=== PATIENT | female | born 2000 | race Caucasian/White ===

== ENCOUNTER 2022-02-21 14:53 | Outpatient (REF) | payer MEDICAID, SELFPAY ==
[2022-02-21 18:04] LABS: CT PCR NOT DETECTED (Not Detect.); NG PCR NOT DETECTED (Not Detect.)
[2022-02-22 12:29] LABS: BV Int Neg Control Negative (Negative); BV Int Pos Control Positive (Positive)
[2022-02-24 18:21] LABS: HPV mRNA E6/E7 rflx Not Detected (Not Detected)
== END 2022-02-21 14:54 | disposition home or self-care (01) ==
LOC: HO.LAB 14:53
PROVIDERS: Visit Provider Advanced Practice Midwife
DX: Z30.09 Encounter for other general counseling and advice on contraception (principal); Z20.2 Contact with and (suspected) exposure to infections with a predominantly sexual mode of transmission; Z97.5 Presence of (intrauterine) contraceptive device
CPT/HCPCS: 81025; 87480; 87491; 87510; 87591; 87624; 87660; 88142

== ENCOUNTER → 2022-04-19 09:59 | Outpatient (BNVA) | payer MEDICAID, SELFPAY | PROVIDERS: PCP Family Medicine; Referring Provider Family Medicine; Visit Provider Surgery | DX: Z97.5 Presence of (intrauterine) contraceptive device (principal) | CPT/HCPCS: 99202 ==

== ENCOUNTER 2022-04-25 09:14 | Day surgery (SDC) | payer MEDICAID, SELFPAY ==
[2022-04-25] VITALS (7 sets, daily range): BP systolic 110–121; BP diastolic 48–71; PULSE 59–88; RESP 16–18; TEMP 36.2–36.6; O2SAT 100; BMI 23.0
--- NOTE | ~2022-04-25 | FL_ITS ---
EXAMINATION: XR FLUOROSCOPY WITH IMAGES CLINICAL INFORMATION: Removal of implant from left upper extremity COMPARISON: None. TECHNIQUE: Fluoroscopy performed by Dr. Marcelina Pavon. Fluoroscopy time: 0.5 minutes. Cumulative Dose: 0.522 mGy. DAP: 0.42692 Gy-cm2. Images: 1. FINDINGS: Single view of portion of the left upper extremity performed with instruments overlying. FL/FL guidance in OR IMPRESSION: Intraoperative fluoroscopy for implant removal.
[2022-04-25 09:39] LABS: UPreg QC Valid YES; Urine Pregnancy NEGATIVE (NEGATIVE)
--- NOTE | 2022-04-25 09:45 | HO.ANESPROP2 ---
HPI - Anesthesia Eval Consult details Narrative: 21 yo female patient for removal of foreign body (Nexplanon) left upper arm PMFSH Active Problems Active Problems: All Active Problems (Updated 03/01/22 @ 12:53 by Qian Rader CNM) control counseling (Acute) Potential exposure to STD (Acute) Cervical cancer screening (Acute) Nexplanon in place (Acute) Family History Family history of problems with anesthesia: No Surgical History Surgical History [place] teeth extracted History of Problems with Anesthesia: No Social History Social History Patient Tobacco Use Status: Never used Tobacco Use of substances other than those prescribed or required for medical reasons: No Are you DNR?: No Advance Directives: No Advance Directives Information Provided: Yes Meds Allergies Allergy/AdvReac Type Severity Reaction Status Date / Time No Known Allergies Allergy Verified 04/19/22 10:05 Active Medications: Current Medications Lactated Ringer's (Lr) 1,000 mls @ 100 mls/hr IVCONT .Q10H DARREL Cefazolin Sodium/Dextrose (Ancef) 2 gm in 50 mls @ 100 mls/hr IV PREOP ONE Stop: 04/25/22 09:46 Exam Exam Date and Time: April 25, 2022 0945 Height,Weight and Vital Signs: Height 5 ft 3 in Weight 58.967 kg Last Vital Signs Temp 97.2 F 04/25/22 09:29 Pulse 61 04/25/22 09:29 Resp 16 04/25/22 09:29 BP 121/62 04/25/22 09:29 Pulse Ox 100 04/25/22 09:29 O2 Del Method 04/25/22 09:29 Pertinent Lab Results Pertinent Lab Results: Laboratory Tests 04/25/22 09:17 Urine Test NEGATIVE Airway Mallampati Class: I TM Dist: >3cm Neck ROM: Full Loose/Missing/Broken Teeth: No Heart: RRR Lungs: CTAB Assessment and Plan Assessment Anesthesia Assessment: Anesthesia Plan Discussed and Chart Reviewed Final Anesthetic Review Family History of Problems with Anesthesia: No History of Problems with Anesthesia: No NPO: Yes ASA Class: I Final Preanesthetic Review: No Changes in Pt Med Stat, Meds/Allgs Chart Reviewed, Consent Obtained/Reviewed and Anes Risks/Benef Reviewed Patient Risk: Low Procedure Risk: Low Assessment/Block/Sedation in SS: Assess/Block/Sedation-SS Anesthetic Plan Anesthetic Plan: GA Disposition: Standard PACU
--- NOTE | 2022-04-25 11:52 | W.PM.OPN ---
Operative Note Operative Note Date of Service: 04/25/22 Narrative: Preoperative diagnosis: Nexplanon left upper arm Postoperative diagnosis: same Procedure: removal of Nexplanon left upper arm fluoro Surgeon: Kali Raines MD [employer] Keeper: JORGE Carlos Anesthesia: general LMA Indications for procedure: 21-year-old female patient presenting with a Nexplanon placed in the left upper arm approximately 3 years ago. Patient is unable to feel the Nexplanon and on examination Nexplanon is not palpable. She presents now for removal under fluoroscopy. Operative findings: Nexplanon in left upper arm Specimen: Nexplanon Estimated blood loss: less than 1 mL Complications: none Procedure details: patient was brought to the OR placed in a supine position. After administering general anesthesia patient's left arm was prepped with ChloraPrep and draped in a sterile fashion. A surgical time-out was called the consent confirmed. Patient received preoperative antibiotics and Venodyne boots were in place. local anesthesia consisting of 0.5% Sensorcaine was infiltrated in the left arm at the midportion of the Nexplanon as identified by fluoroscopy. A transverse incision was then made with a scalpel carried out through subcutaneous tissue. Using the fluoroscopy as a guide the Nexplanon was identified And grasped with a hemostat. This was then pulled up through the incision and removed. After assuring adequate hemostasis the skin was closed using interrupted 4-0 Polysorb sutures in a subcuticular fashion. Dermabond was then applied. The patient tolerated the procedure well. Sponge, instrument, and needle counts reported as correct. The patient was transferred to PACU in stable condition.
== END 2022-04-25 14:15 | disposition home or self-care (01) ==
PROVIDERS: Anesthesiology; Visit Provider Surgery
PROC: (CPT 11982; principal; 2022-04-25 11:20)
DX: Z30.46 Encounter for surveillance of implantable subdermal contraceptive (principal)
CPT/HCPCS: 11982; 81025; 88300; J0690; J1100; J2250; J2405; J2795; J3010

== ENCOUNTER 2024-02-23 11:37 | Outpatient (REF) | payer MEDICAID, SELFPAY ==
[2024-02-23 13:10] LABS: MANUAL DIFF FLAG NO
[2024-02-23 13:14] LABS: Basophils Percent Auto 0.6 % (0-2); Eosinophils Absolute Auto 0.1 X10*3/uL (0.0-0.4); Eosinophils Percent Auto 2.1 % (0-4); Hematocrit 40.6 % (37.0-47.0); Hemoglobin 13.2 g/dl (12.0-16.0); Imm Gran Abs Auto 0.01 X10*3/uL (0.00-0.03); Imm Gran Pct Auto 0.2 % (0.0-0.4); Lymphocytes Absolute Auto 1.9 X10*3/uL (1.2-4.9); Lymphocytes Percent Auto 30.4 % (20-40); Mean Corpuscular HGB Conc 32.5 g/dl (31.0-35.0); Mean Corpuscular Volume 92.3 fL (80.0-98.0); Mean Platelet Volume 10.7 fL (9.4-12.3); Monocytes Absolute Auto 0.5 X10*3/uL (0.1-1.2); Monocytes Percent Auto 7.8 % (2-11); Neutrophils Absolute Auto 3.7 x10*3/uL (2.0-8.3); Neutrophils Percent Auto 58.9 % (45-73); Platelet Count 281 X10*3/uL (160-400); Red Cell Distribution Width 13.6 % (11.0-16.0); White Blood Count 6.3 X10*3/uL (4.8-10.8)
[2024-02-23 13:33] LABS: Rheumatoid Factor < 13.0 IU/mL (<15.0)
[2024-02-23 13:38] LABS: Alanine Aminotransferase 16 U/L (0-31); Albumin Level 4.3 g/dL (3.5-5.0); Alkaline Phosphatase 54 U/L (39-117); Anion Gap 11 (12-20); Aspartate Amino Transferase 17 U/L (5-31); Blood Urea Nitrogen 9 mg/dL (9-16); C Reactive Protein 0.13 mg/dL (< or = 0.50); Calcium 9.5 mg/dL (8.4-10.2); Carbon Dioxide 24 mmol/L (22-29); Chloride 106 mmol/L (96-108); Estimated Glomerular Filt Rate > 60; Glucose Random 86 mg/dL (60-115); Potassium 3.4 mmol/L (3.3-5.1); Sodium 138 mmol/L (135-145); Total Protein 7.3 g/dL (6.5-8.0)
[2024-02-23 13:46] LABS: HCG Quantitative < 2 mIU/mL
[2024-02-23 13:55] LABS: Creatinine Urine 92.45 mg/dL; Microalbum/Creatinine Ratio Ur 6.4 ug/mg cr (<30)
[2024-02-25 02:24] LABS: Prolactin 45.6 ng/mL
== END 2024-02-23 11:38 | disposition home or self-care (01) ==
LOC: HO.HHCL 11:37
PROVIDERS: Visit Provider Internal Medicine Geriatric Medicine
DX: K64.9 Unspecified hemorrhoids (principal); M79.89 Other specified soft tissue disorders; N64.52 Nipple discharge
CPT/HCPCS: 36415; 80053; 82043; 82570; 84146; 84702; 85025; 86140; 86431